=== PATIENT | male | born 1975 | race Two or more races ===

== ENCOUNTER 2017-05-12 10:11 | Emergency (ER) | payer OTHER ==
[~2017-05-12] VITALS: Ht 175.3 cm; Wt 81.6 kg
[2017-05-12] MEDS ORDERED: LIDOCAINE/EPI/TETRACAINE TOPICAL GEL 3 ML. TP ONE (10:45)
[2017-05-12] MEDS ORDERED: HYDROcodone/APAP 5/325MG 1 TAB TABLET PO ONE (11:00)
[2017-05-12] MEDS ORDERED: DIPHTH,PERTUSS(ACELL),TET TOX 0.5 ML DISP.SYRIN. VAX IM ONE (11:00)
[2017-05-12] MEDS ORDERED: LIDOCAINE 1% / SOD BICARB 8.4% 20 ML VIAL. IJ ONE (11:00)
--- NOTE | 2017-05-12 11:36 | RAD ---
Right femur, 2 views, 05/12/2017: History: Laceration, injury There is an old surgical wire related to a healed distal femoral fracture. No acute fracture or destructive bony lesion is seen. Soft tissue calcifications along the superior aspect of the greater trochanter appear old. There is a suggestion of an underlying old pin tract in the proximal femur. A partially radiopaque bandage overlies the distal thigh. No underlying radiopaque foreign body is seen. IMPRESSION: 1. Old postsurgical findings as described above. 2. No acute bony abnormality is detected.
[2017-05-12 12:56] VITALS: BP 105/72
--- NOTE | 2017-05-12 12:58 | PHYS DOC ---
Past Medical History Past Medical History: No Pertinent History Past Surgical History: Other Additional Past Surgical Histo: Right leg fx/repair Alcohol Use: Occasionally Drug Use: None Adult General Chief Complaint Chief Complaint: LACERATION/AVULSION HPI HPI Patient is a 42 year old male who presents with right thigh laceration. Patient states a chain saw and accidentally cut him. Review of Systems Review of Systems Constitutional: Denies fever or chills [] Eyes: Denies change in visual acuity, redness, or eye pain [] HENT: Denies nasal congestion or sore throat [] Musculoskeletal: Denies back pain or joint pain [] Integument: right thigh laceration. Neurologic: Denies headache, focal weakness or sensory changes [] Endocrine: Denies polyuria or polydipsia [] Current Medications Current Medications Current Medications Medications (Trade) Dose Ordered Sig/Ramno Start Time Stop Time Status Last Admin Dose Admin Acetaminophen/ Hydrocodone Bitart (Lortab 5/325) 1 tab 1X ONCE 05/12/17 11:00 05/12/17 11:01 DC 05/12/17 10:59 1 TAB Diphtheria/ Tetanus/Acell Pertussis (Boostrix) 0.5 ml ONCE ONCE 05/12/17 11:00 05/12/17 11:01 DC 05/12/17 10:59 0.5 ML Lidocaine/ Epinephrine (Let Topical) 3 ml 1X ONCE 05/12/17 10:45 05/12/17 10:46 DC 05/12/17 11:00 3 ML Lidocaine/Sodium Bicarbonate (Buffered Lidocaine 1%) 20 ml 1X ONCE 05/12/17 11:00 05/12/17 11:01 DC 05/12/17 11:00 20 ML Allergies Allergies Allergies Coded Allergies Type Severity Reaction Last Updated Verified No Known Drug Allergies 05/12/17 No Physical Exam Physical Exam Constitutional: Well developed, well nourished, no acute distress, non-toxic appearance. [] HENT: Normocephalic, atraumatic, bilateral external ears normal, oropharynx moist, no oral exudates, nose normal. [] Eyes: PERRLA, EOMI, conjunctiva normal, no discharge. [] Abdomen: Bowel sounds normal, soft, no tenderness, no masses, no pulsatile masses. [] Skin: Right distal anterior thigh with third-degree laceration approximately 6 cm long. Bleeding is well controlled. No tendon involvement. Full range of motion to the right lower extremity. +2 right radial pedal pulse. Cap refill less than 2 seconds the right lower extremity. Back: No tenderness, no CVA tenderness. [] Extremities: No tenderness, no cyanosis, no clubbing, ROM intact, no edema. [] Neurologic: Alert and oriented X 3, normal motor function, normal sensory function, no focal deficits noted. [] Psychologic: Affect normal, judgement normal, mood normal. [] Current Patient Data Vital Signs Vital Signs Date Time Temp Pulse Resp B/P (MAP) Pulse Ox O2 Delivery O2 Flow Rate FiO2 05/12/17 12:56 55 20 105/72 (83) 98 05/12/17 10:24 98.4 Room Air 98.4 EKG EKG [] Radiology/Procedures Radiology/Procedures []PROCEDURE: RIGHT FEMUR XRAY Right femur, 2 views, 05/12/2017: History: Laceration, injury There is an old surgical wire related to a healed distal femoral fracture. No acute fracture or destructive bony lesion is seen. Soft tissue calcifications along the superior aspect of the greater trochanter appear old. There is a suggestion of an underlying old pin tract in the proximal femur. A partially radiopaque bandage overlies the distal thigh. No underlying radiopaque foreign body is seen. IMPRESSION: 1. Old postsurgical findings as described above. 2. No acute bony abnormality is detected. DICTATED and SIGNED BY: SHASTA ERAZO MD DATE: 05/12/17 1132 CC: YOSEPH GUEVARA APRN; NO PCP ~ Indication: right thigh laceration. Procedure: The patient was placed in the appropriate position and anesthesia around the laceration was let solution then 1% buffered lidocaine. Inner laceration was closed 4 interrupted sutures using 5. 0 Vicryl, exterior laceration was closed with 9 interrupted sutures using 4. 0 Ethilon. The laceration covered with gauze and odessa wrap. Total repaired wound length:approx. 6 cm Other Items: none The patient tolerated the procedure well Complications: none Course & Med Decision Making Course & Med Decision Making Pertinent Labs and Imaging studies reviewed. (See chart for details) Patient has right thigh laceration which was closed by me as noted in procedures. Tetanus was updated. Provided wound care and return precautions provided. Dragon Disclaimer Dragon Disclaimer This electronic medical record was generated, in whole or in part, using a voice recognition dictation system. Departure Departure Impression: Primary Impression: Laceration of right thigh Disposition: 01 HOME, SELF-CARE Condition: STABLE Referrals: NO PCP (PCP) Follow-up with the emergency room or your own doctor in 7-10 days for stitches removed Patient Instructions: Laceration Care, Adult Additional Instructions: Keep your laceration clean and dry. Apply Neosporin to eat twice a day. Come back to the emergency room or follow-up with your doctor in 7-10 days for stitches removal. Monitor the area for signs and symptoms of infection including increased redness warmth or odor/yellow/increased drainage from the area and return to the ED if they occur. Problem Qualifiers Primary Impression: Laceration of right thigh Encounter type: initial encounter Qualified Codes: S71.111A - Laceration without foreign body, right thigh, initial encounter YOSEPH GUEVARA [employer] May 12, 2017 12:58
== END 2017-05-12 13:02 | disposition home or self-care (01) ==
LOC: ER 10:11
DX: S71.111A Laceration without foreign body, right thigh, initial encounter (principal); W29.3XXA Contact with powered garden and outdoor hand tools and machinery, initial encounter; Y93.89 Activity, other specified; Y92.89 Other specified places as the place of occurrence of the external cause; Y99.8 Other external cause status
CPT/HCPCS: 12002; 73552; 90471; 90715; 99284-25

== ENCOUNTER 2017-06-03 11:48 | Emergency (ER) | payer OTHER ==
[~2017-06-03] VITALS: Ht 180.3 cm; Wt 81.6 kg
[2017-06-03 11:54] VITALS: BP 121/75
[2017-06-03] MEDS ORDERED: NEOM28.32 TP (12:25)
--- NOTE | 2017-06-03 12:25 | PHYS DOC ---
Past Medical History Past Medical History: No Pertinent History Past Surgical History: Other Additional Past Surgical Histo: Right leg fx/repair Alcohol Use: Occasionally Drug Use: None Adult General Chief Complaint Chief Complaint: SUTURE/STAPLE REMOVAL HPI HPI Patient is a 42 year old male who presents for suture removal from the right thigh. Patient states the sutures have been in for 3 weeks Review of Systems Review of Systems Constitutional: Denies fever or chills [] Musculoskeletal: Denies back pain or joint pain [] Integument: Suture removal from the right thigh Neurologic: Denies headache, focal weakness or sensory changes [] Endocrine: Denies polyuria or polydipsia [] Allergies Allergies Allergies Coded Allergies Type Severity Reaction Last Updated Verified No Known Drug Allergies 05/12/17 No Physical Exam Physical Exam Constitutional: Well developed, well nourished, no acute distress, non-toxic appearance. [] Skin: Right ventral thigh with a well approximated laceration with approximately 6 interrupted sutures. The laceration site has a scab over it. There is trace amount of erythema around the laceration site. No drainage. No warmth. Back: No tenderness, no CVA tenderness. [] Extremities: No tenderness, no cyanosis, no clubbing, ROM intact, no edema. [] Neurologic: Alert and oriented X 3, normal motor function, normal sensory function, no focal deficits noted. [] Psychologic: Affect normal, judgement normal, mood normal. [] Current Patient Data Vital Signs Vital Signs Date Time Temp Pulse Resp B/P (MAP) Pulse Ox O2 Delivery O2 Flow Rate FiO2 06/03/17 11:54 98.4 60 16 98 Room Air 98.4 EKG EKG [] Radiology/Procedures Radiology/Procedures [] Course & Med Decision Making Course & Med Decision Making Pertinent Labs and Imaging studies reviewed. (See chart for details) Patient is in the ED for suture removal from the right ventral thigh. Laceration site is well approximated. Approx. 6 interrupted sutures were removed from the laceration site by the ED RN. Patient was discharged with instructions to apply Neosporin to the area. Follow-up with PCP in 1-2 weeks as needed. Dragon Disclaimer Dragon Disclaimer This electronic medical record was generated, in whole or in part, using a voice recognition dictation system. Departure Departure Impression: Primary Impression: Visit for suture removal Disposition: HOME, SELF-CARE Condition: STABLE Referrals: NO PCP (PCP) Follow-up with your doctor in 1-2 weeks Patient Instructions: Suture Removal-Brief Additional Instructions: We removed stitches from your right thigh. Keep the area clean and dry. Apply Neosporin to the area twice a day for 1 week. Follow-up with your doctor in 1-2 weeks. Come back to the ED for wound condition worsens. Scripts Neomy Sulf/Bacitrac Zn/Poly (NEOSPORIN OINTMENT) 28.3 Gm Oint...g. 28.3 GM TP BID, #1 MISC Prov: YOSEPH GUEVARA APRN 06/03/17 YOSEPH GUEVARA APRN Jun 03, 2017 12:25
== END 2017-06-03 12:31 | disposition home or self-care (01) ==
LOC: ER 11:48
DX: S71.111D Laceration without foreign body, right thigh, subsequent encounter (principal); X58.XXXD Exposure to other specified factors, subsequent encounter; Y92.89 Other specified places as the place of occurrence of the external cause; Y99.8 Other external cause status
CPT/HCPCS: 99283